=== PATIENT | male | born 2000 | race Caucasian/White ===

== ENCOUNTER 2019-10-21 15:25 | Emergency (ER) | payer SELFPAY ==
[2019-10-21 15:26] VITALS: BP 126/89; PULSE 93; RESP 18; TEMP 36.8; O2SAT 98; BMI 34.0
--- NOTE | 2019-10-21 15:40 | ED_ITS ---
HPI - General Adult General: Chief complaint: General Medical Stated complaint: gonzales, sore throat, n/v/d, cough Time Seen by Provider: 10/21/19 15:33 History of Present Illness: HPI narrative: 19-year-old male patient presents to the emergency department with onset of cough congestion, sore throat and headache for the past week. He reports has not seen his primary care provider. He reports unknown if he has experienced fever. Reports chills. He reports no vomiting for the past 5 days, able to eat and drink but experiences pain with swallowing. Associated symptoms: Reports dyspnea, headache(s) and nausea; Deny chest pain, diaphoresis, rash, palpitations or vomiting Review of Systems General: Reports: 10 or more systems reviewed and unremarkable except in HPI and below Const: Reports: chills; Denies: fever(s) or diaphoresis Eyes: Denies: blurry vision or eye redness ENMT: Reports: throat pain; Denies: dental pain or disequilibrium Card: Denies: chest pain, palpitations or irregular heart rhythm Resp: Reports: dyspnea, productive cough (Purulent), chest congestion and other (Wheezing); Denies: non-productive cough or wheezing GI: Reports: nausea; Denies: abdominal pain or vomiting : Denies: dysuria Musc: Denies: back pain Skin/Breast: Denies: rash or pruritus Neuro: Reports: headache(s); Denies: weakness in extremities or behavioral changes Curtis/Lymph: Denies: easy bruising Physical Exam Const: COMMON NORMALS: no acute distress, patient oriented x3, healthy appearing and alert GENERAL APPEARANCE: cooperative, comfortable and well hydrated HENMT: COMMON NORMALS: normocephalic, external ears normal, Normal external nose present and moist oral mucous membranes HEAD & SCALP: normocephalic FACE & SINUS: sinus tenderness maxillary (Bilateral) NOSE: Normal external nose present EXTERNAL EAR: Yes external ears normal TYMPANIC MEMBRANE: TM abnormal TM laterality: bilateral erythematous and with fluid behind the TM THROAT: uvula midline, posterior oropharynx abnormal cobblestoning and erythema and postnasal drainage Eye: COMMON NORMALS: Equal, round and reactive pupils present and EOMs intact bilaterally GENERAL EYE: appearance normal, both eyes and all related structures PUPIL: Yes Equal, round and reactive pupils present Neck/C-Spine: COMMON NORMALS: full ROM and no lymphadenopathy GENERAL: Yes normal visual inspection and Yes trachea midline CERVICAL SPINE: Yes cervical ROM normal Lymph: LYMPHATIC: no lymphadenopathy noted Chest: COMMONS NORMALS: normal inspection of the chest Resp: COMMON NORMALS: normal respiratory effort and clear to auscultation bilaterally AUSCULTATION: clear to auscultation bilaterally Cardio: COMMON NORMALS: regular rhythm, S1 normal heart sound present and S2 normal heart sound present RHYTHM: regular rhythm HEART SOUNDS: S1 normal heart sound present and S2 normal heart sound present GI: COMMON NORMALS: Soft to palpation and non-tender INSPECTION: Yes normal to inspection PALPATION: Yes Soft to palpation : COMMON NORMALS: Yes no CVA tenderness BLADDER/KIDNEY EXAM: Yes no CVA tenderness Back/Pelvis: COMMON NORMALS: no CVA tenderness and thoracic and lumbar spine normal to inspection Extremity: COMMON NORMALS: normal to inspection and capillary refill normal Neuro: COMMON NORMALS: patient oriented x3 and no focal motor deficits SENSORIUM/ORIENTATION: Yes alert Psych: COMMON NORMALS: mental status grossly normal, Normal thought process present and cooperative ACTIVITY/MOTOR BEHAVIOR: Yes appropriate eye contact THOUGHT PROCESS: Normal thought process present Skin: COMMON NORMALS: no rashes or lesions noted and turgor normal GENERAL SKIN EXAM: no rashes or lesions noted and turgor normal Course Vital Signs: Vital signs: Vital Signs Temperature 98.2 F 10/21/19 15:26 Pulse Rate 93 10/21/19 15:26 Respiratory Rate 18 10/21/19 15:26 Blood Pressure 126/89 10/21/19 15:26 Pulse Oximetry 98 10/21/19 15:26 Coding Level of Care Code ED Body Press Operator for Asad Paul
[2019-10-21 15:54] VITALS: BP 126/89; PULSE 86; RESP 18; O2SAT 97
== END 2019-10-21 15:56 | disposition home or self-care (01) ==
PROVIDERS: Emergency Provider Nurse Practitioner Family
DX: R51 Headache (principal); R05 Cough; J02.9 Acute pharyngitis, unspecified
CPT/HCPCS: 12345; 99281

== ENCOUNTER 2019-12-18 12:43 | Emergency (ER) | payer SELFPAY ==
[2019-12-18 12:48] VITALS: BP 142/81; PULSE 69; RESP 18; TEMP 36.6; O2SAT 98; BMI 34.0
--- NOTE | 2019-12-18 12:56 | XRR_ITS ---
PROCEDURE INFORMATION: Exam: XR Right Knee Exam date and time: 12/18/2019 12:57 PM Age: 19 years old Clinical indication: Pain and injury or trauma; Fall; Initial encounter; Blunt trauma; Injury date: 3 weeks ago; Injury details: HX of fracture of right knee; Additional info: RT knee pain - injury TECHNIQUE: Imaging protocol: XR Right knee. Views: 3 views. COMPARISON: No relevant prior studies available. FINDINGS: Bones/joints: Negative for acute bony abnormality Soft tissues: Normal. XR/XR knee RT 3V* [id number] IMPRESSION: No acute findings.
--- NOTE | 2019-12-18 13:19 | ED_ITS ---
HPI - Extremity Problem General: Chief complaint: Extremity Injury, Lower Stated complaint: Pain in Right Knee Time Seen by Provider: 12/18/19 12:52 History of Present Illness: HPI Narrative: 19-year-old male patient presents to the emergency department with complaints of right knee pain. He reports approximately 3 weeks ago, he sustained a fall, did go to a local emergency department, [place] where he was told x-ray was negative for fracture. He states pain continues. Worse with ambulation -states swelling is now present. States right knee feels weak at times. MD Complaint: joint swelling and joint pain (Right knee) Onset (ago): week(s) (3) Pain Consistency: intermittent Location: right and knee Severity scale (1-10): 5 Quality: aching and dull Radiation: none Relieving factors: immobilization and rest Exacerbating factors: range of motion and weight bearing Associated symptoms: Reports no associated symptoms; Deny chest pain, fever(s) or rash Review of Systems General: Reports: 10 or more systems reviewed and unremarkable except in HPI and below Const: Denies: fever(s), chills or diaphoresis Eyes: Denies: blurry vision or eye redness ENMT: Denies: throat pain, dental pain or disequilibrium Card: Denies: chest pain, palpitations or irregular heart rhythm Resp: Denies: dyspnea, productive cough, non-productive cough or wheezing GI: Denies: abdominal pain, nausea or vomiting : Denies: dysuria Musc: Reports: joint pain (Right knee) and joint swelling (Right knee); Denies: neck pain or back pain Skin/Breast: Denies: rash or pruritus Neuro: Denies: headache(s), weakness in extremities or behavioral changes Curtis/Lymph: Denies: easy bruising Physical Exam Const: COMMON NORMALS: no acute distress, patient oriented x3, healthy appearing and alert GENERAL APPEARANCE: cooperative, comfortable and well hydrated HENMT: COMMON NORMALS: normocephalic, Normal external nose present and moist oral mucous membranes HEAD & SCALP: normocephalic NOSE: Normal external nose present Eye: COMMON NORMALS: Equal, round and reactive pupils present and EOMs intact bilaterally GENERAL EYE: appearance normal, both eyes and all related structures PUPIL: Yes Equal, round and reactive pupils present Neck/C-Spine: COMMON NORMALS: full ROM and no lymphadenopathy GENERAL: Yes normal visual inspection and Yes trachea midline CERVICAL SPINE: Yes cervical ROM normal Lymph: LYMPHATIC: no lymphadenopathy noted Chest: COMMONS NORMALS: normal inspection of the chest Resp: COMMON NORMALS: normal respiratory effort and clear to auscultation bilaterally AUSCULTATION: clear to auscultation bilaterally Cardio: COMMON NORMALS: regular rhythm, S1 normal heart sound present, S2 normal heart sound present and Peripheral pulses 2+ throughout RHYTHM: regular rhythm HEART SOUNDS: S1 normal heart sound present and S2 normal heart sound present PERIPHERAL PULSES: Peripheral pulses 2+ throughout GI: COMMON NORMALS: Soft to palpation and non-tender INSPECTION: Yes normal to inspection PALPATION: Yes Soft to palpation : COMMON NORMALS: Yes no CVA tenderness BLADDER/KIDNEY EXAM: Yes no CVA tenderness Back/Pelvis: COMMON NORMALS: no CVA tenderness and thoracic and lumbar spine normal to inspection Extremity: COMMON NORMALS: normal to inspection, full ROM and capillary refill normal GENERAL: Yes normal exam except as noted RIGHT LOWER EXTREMITY: Yes knee joint Right knee: Yes inspection (Edema anteriorly superior of patella suggestive of effusion), Yes palpation (Pain with anterior and lateral palpation), Yes ROM (Limping gait noted, able to stand on right knee. Flexion extension noted with mild tenderness), Yes neurovascular exam (Distally intact) and Yes special tests Right knee special tests: Anterior Enoch test: Positive and Posterior Enoch test: Positive Neuro: COMMON NORMALS: patient oriented x3 and no focal motor deficits SENSORIUM/ORIENTATION: Yes alert Psych: COMMON NORMALS: mental status grossly normal, Normal thought process present and cooperative ACTIVITY/MOTOR BEHAVIOR: Yes appropriate eye contact THOUGHT PROCESS: Normal thought process present Skin: COMMON NORMALS: no rashes or lesions noted and turgor normal GENERAL SKIN EXAM: no rashes or lesions noted and turgor normal Course ED course: 19-year-old male presents to the emergency department with complaints of right knee pain. Previous emergency room evaluation at local facility with negative right knee findings on x-ray according to the patient. X-ray findings today were negative for fracture. He reports has knee immobilizer and crutches at home, he was encouraged to use them. Discussed with patient plan to have MRI of the right knee as OP - plan to have f/u with orthopedic surgery. Questions were answered and he verbalized understanding of plan. Vital Signs: Vital signs: Vital Signs Temperature 97.8 F 12/18/19 12:48 Pulse Rate 69 12/18/19 12:48 Respiratory Rate 18 12/18/19 12:48 Blood Pressure 142/81 12/18/19 12:48 Pulse Oximetry 98 12/18/19 12:48 MDM - Extremity (Nontraumatic) Imaging Data^: Other Xray: Radiologist's impression: [address] [address] XRay Report Signed Patient: Manny Brown Unit #: [id number] : 2000 Age/Sex: 19 / M ADM Date: 12/18/19 Loc: ER Room/Bed: Attending Dr: Ordering Provider/Ordering MD: Cynthia Hunt Date of Service: 12/18/19 Procedure(s): XR knee RT 3V* [id number] Accession Number(s): [id number] Report Number: [id number] PROCEDURE INFORMATION: Exam: XR Right Knee Exam date and time: 12/18/2019 12:57 PM Age: 19 years old Clinical indication: Pain and injury or trauma; Fall; Initial encounter; Blunt trauma; Injury date: 3 weeks ago; Injury details: HX of fracture of right knee; Additional info: RT knee pain - injury TECHNIQUE: Imaging protocol: XR Right knee. Views: 3 views. COMPARISON: No relevant prior studies available. FINDINGS: Bones/joints: Negative for acute bony abnormality Soft tissues: Normal. XR/XR knee RT 3V* [id number] IMPRESSION: No acute findings. Dictated By: Óscar Zuñiga Signed By: Óscar Zuñiga Signed Date/Time: 12/18/19 1326 DD/ 1325 Discharge Plan Discharge Patient Disposition: Home Clinical Impression: Knee joint pain Qualifiers: Laterality: right Qualified Code(s): M25.561 - Pain in right knee Internal derangement of knee Qualifiers: Laterality: left Qualified Code(s): M23.92 - Unspecified internal derangement of left knee Condition: Stable Prescriptions: New IBU 800 mg tablet 800 mg PO TID PRN (Reason: pain) Qty: 30 RF: 0 No Action Ventolin HFA 90 mcg/actuation HFA aerosol inhaler 2 inh INHALATION Q4H PRN (Reason: shortness of breath or wheezing) Qty: 8.5 RF: 0 Discharge Orders: Discharge Order (Routine); Ordered 12/18/19 Ordered By: Cynthia Hunt Discharge Diet: Usual diet Discharge Activity: Limit activity as instructed Patient Instructions: Knee Effusion (ED), Knee Pain (ED) Activity Restrictions/Additional Instructions: Use crutches and right knee immobilizer as directed, this will help with pain and help with swelling. Cool compresses to the right knee when able, avoid ice directly to the skin Keep the right knee elevated as much as possible to help with swelling An MRI of the right knee has been ordered, appointment will be made with follow- up with orthopedic surgery If you develop worsening signs and symptoms of pain, or inability to feel your right leg, return to the emergency room immediately. May use Tylenol as needed for breakthrough pain Do not utilize any further pain medication as dual therapy may occur. Stand Alone Forms: Work/School Release Discharge Date/Time: 12/18/19 14:23 Coding Level of Care Code ED Acquisition Consultant for Asad Fwjoel Exam Comprehensive
--- NOTE | 2019-12-18 15:24 | DCPLANNER ---
occupational therapy manager was asked to schedule an outpatient MRI for patient and make a referral to ortho. occupational therapy manager faxed order for MRI of knee to centralized scheduling, will call for appointment. After MRI, vocational case manager will schedule a follow up appointment for patient with ortho.
--- NOTE | 2019-12-20 11:06 | DCPLANNER ---
Patient has an MRI scheduled, onsite case manager called the ortho clinic, spoke with Kat, made referral to the clinic for after the scheduled MRI. Clinic will call patient with appointment information.
--- NOTE | 2019-12-21 11:55 | DCPLANNER ---
Patient has a follow up appointment scheduled for Wednesday, January 01, [address] at 9:[address] Arizmendi. Clinic will contact patient with appointment information.
--- NOTE | 2020-01-11 08:00 | DCPLANNER ---
Patient had an MRI scheduled for 12.28.19 - patient attended Patient had follow up with ortho on 01.01.20 - patient attended
== END 2019-12-18 14:23 | disposition home or self-care (01) ==
PROVIDERS: Emergency Provider Nurse Practitioner Family
DX: M23.91 Unspecified internal derangement of right knee (principal)
CPT/HCPCS: 12345; 73562; 99281; 99282

== ENCOUNTER 2019-12-28 09:34 | Outpatient (CLI) | payer SELFPAY ==
--- NOTE | 2019-12-28 09:52 | MR_ITS ---
WS: [id number] MRI RIGHT KNEE HISTORY: INTERNAL DERANGEMENT RIGHT KNEE COMPARISON: 12/17/2022 knee radiograph. Anterior cruciate ligament: Very small amount of increased T2 signal in the ACL but no tear. Posterior cruciate ligament: Intact. Medial collateral ligament: Small amount of fluid medial to the MCL. No tear. Posterior lateral corner structures: Intact. Medial menisci: Intact. Normal signal, size and shape. Lateral meniscus: Intact. Normal signal, size and shape. Extensor mechanism: Distal quadriceps tendon and patellar tendons are intact. Fluid and soft tissue: Small suprapatellar joint effusion. There is also soft tissue edema over the a nterior knee. Small amount of edema in the infrapatellar fat pad. No Howard's cyst. Small amount of fl uid along the popliteus tendon. Osseous and articular structures: Patellofemoral compartment: Normal. Medial compartment: Very mild irregularity of the cartilage surface. No full-thickness defects. There is a small amount of marrow edema in the lateral femoral condyle Lateral compartment: Normal. MR/MR knee RT wo con* [id number] IMPRESSION: 1. Small amount of acute marrow edema medial femoral condyle. 2. Mild proximal MCL sprain. No tear. 3. Small joint effusion and soft tissue edema.
== END 2019-12-28 09:35 | disposition home or self-care (01) ==
LOC: RADWPI 09:38
PROVIDERS: PCP Nurse Practitioner Family; Visit Provider Nurse Practitioner Family
DX: M23.91 Unspecified internal derangement of right knee (principal); M25.461 Effusion, right knee; R60.0 Localized edema; S83.411A Sprain of medial collateral ligament of right knee, initial encounter; X58.XXXA Exposure to other specified factors, initial encounter
CPT/HCPCS: 73721

== ENCOUNTER 2021-11-16 02:54 | Emergency (ER) | payer SELFPAY ==
[2021-11-16 03:09] VITALS: BP 133/76; PULSE 90; RESP 16; TEMP 36.8; O2SAT 98; BMI 35.6
--- NOTE | 2021-11-16 03:17 | XRR_ITS ---
PROCEDURE INFORMATION: Exam: XR Left Elbow Exam date and time: 11/16/2021 3:44 AM Age: 21 years old Clinical indication: Pain; Elbow; Left; Prior surgery; Additional info: L elbow pain TECHNIQUE: Imaging protocol: Radiologic exam of the Left elbow. Views: 3 or more views. COMPARISON: No relevant prior studies available. FINDINGS: Bones/joints: Normal. Soft tissues: Normal. Other findings: Postoperative changes over the distal humerus and proximal olecranon. XR/XR elbow LT min 3V* [id number] IMPRESSION: No acute findings.
[2021-11-16 05:29] VITALS: RESP 17
[2021-11-16] MEDS: oxyCODONE-APAP 5-325 mg Tablet 1 TAB PO (05:29)
--- NOTE | 2021-11-16 23:33 | W.ED.EXTPRO ---
HPI - Extremity Problem General: Chief complaint: Extremity Injury, Upper Stated complaint: Left Arm Pain Time Seen by Provider: 11/16/21 04:14 Source: patient History of Present Illness: 21-year-old male who fractured his left elbow over a year ago. He has hardware present in the elbow. He states that he has limited range of motion, which she deals with. He was in pain for a while after his surgery, but this seemed to slowly improved. However, for the last month, he is experienced increased pain and swelling with the elbow, and increasing limitations in range of motion. This is not improved with [id number] NSAIDs alone. He denies any fever. He denies significant new numbness and tingling, although he notes that his fifth finger is numb since surgery. MD Complaint: extremity pain and extremity swelling Location: left and upper extremity Associated symptoms: Deny fever(s) or rash Review of Systems Const: Denies: fever(s), chills or body aches Eyes: Denies: change in vision ENMT: Denies: throat pain Resp: Denies: dyspnea, productive cough, non-productive cough or wheezing GI: Denies: diarrhea or hematochezia Skin/Breast: Denies: rash Neuro: Denies: headache(s) or confusion PFSH ED PFSH: Social History Smoking and tobacco status: never smoked Alcohol intake: never Physical Exam Const: COMMON NORMALS: no acute distress GENERAL APPEARANCE: cooperative; not ill appearing and not frail appearing HENMT: COMMON NORMALS: normocephalic, atraumatic and Normal external nose present HEAD & SCALP: normocephalic and atraumatic FACE & SINUS: normal facial exam and face symmetric NOSE: Normal external nose present Eye: COMMON NORMALS: Equal, round and reactive pupils present and EOMs intact bilaterally PUPIL: Yes Equal, round and reactive pupils present Neck/C-Spine: GENERAL: Yes trachea midline Chest: CHEST: Yes Symmetrical chest wall rise Resp: COMMON NORMALS: normal respiratory effort, No retractions and No use of accessory muscles Cardio: COMMON NORMALS: regular rate and regular rhythm RATE: regular rate RHYTHM: regular rhythm Extremity: NARRATIVE EXTREMITY EXAM: Examination of the left upper extremity reveals tenderness over the left elbow. Range of motion is limited both in flexion and extension as well as supination and pronation the elbow is not overly warm. It is mildly swollen. There is no deformity. No redness or streaking. Neuro: JIM COMA SCALE: document GCS findings Jim coma scale eye opening: Spontaneous Jim coma scale verbal response: Orientated Jim coma scale motor response: Obey commands Jim coma scale total score: 15 SENSORY EXAM: Yes extremities (intact) Psych: COMMON NORMALS: speech normal SPEECH: Yes normal speech Skin: COMMON NORMALS: no rashes or lesions noted GENERAL SKIN EXAM: no rashes or lesions noted Course Vital Signs: Vital signs: Vital Signs Temperature 98.3 F 11/16/21 03:09 Pulse Rate 90 11/16/21 03:09 Respiratory Rate 17 11/16/21 05:29 Blood Pressure 133/76 11/16/21 03:09 Pulse Oximetry 98 11/16/21 03:09 Oxygen Delivery Me thod 11/16/21 03:09 MDM - Extremity (Nontraumatic) Medical Decision Making X-ray shows no acute findings of the elbow. He is afebrile. The elbow is not overly warm. He will be prescribed anti-inflammatory medication, and asked to follow-up. Case management has been asked to make the patient appointment with orthopedics. Lab Data Radiology Impressions Elbow X-Ray 11/16/21 03:17 IMPRESSION: No acute findings. Discharge Plan Discharge Patient Disposition: Home Clinical Impression: Elbow pain, left Condition: Stable Prescriptions: New ketorolac 10 mg tablet 10 mg PO TID PRN (Reason: pain) Qty: 10 0RF No Action IBU 800 mg tablet 800 mg PO TID PRN (Reason: pain) Qty: 30 0RF Ventolin HFA 90 mcg/actuation HFA aerosol inhaler 2 inh INHALATION Q4H PRN (Reason: shortness of breath or wheezing) Qty: 8.5 0RF Discharge Orders: Discharge ED (Routine); Ordered 11/16/21 Ordered By: Lai Rodriguez Patient Instructions: Arthralgia (ED), Opioid Safety Activity Restrictions/Additional Instructions: Case management order has been placed for you to follow-up with orthopedics here. Medication as directed. Ice will help with pain as well. Coding Level of Care Code ED Retail Wireless Sales Representative for Asad Paul
--- NOTE | 2021-11-17 15:37 | DCPLANNER ---
Addendum entered by Ann-Marie Mendoza 11/27/21 08:23: assurance senior manager insurance received the following message from the ortho clinic regarding follow up appointment: Left vm/mailed letter for him to call back and schedule with Dr. Arizmendi Original Note: assurance senior manager insurance had message to schedule a follow up appointment for patient with ortho. assurance senior manager insurance sent patients information to the front office staff at ortho. Patients information will be printed and reviewed. Clinic will call patient with appointment information.
== END 2021-11-16 06:04 | disposition home or self-care (01) ==
PROVIDERS: Emergency Provider Emergency Medicine
DX: M25.522 Pain in left elbow (principal)
CPT/HCPCS: 73080; 99283

== ENCOUNTER 2021-12-16 19:51 | Emergency (ER) | payer SELFPAY ==
--- NOTE | 2021-12-16 19:52 | ECG_ITS ---
[facility] Test Date: 2021-12-16 Pat Name: Manny Brown Department: Room: Gender: Male Director Of Archives: : 2000 Requested By: Mac oN Order Number: [id number] Piper MD: Silvina Conrad M.D. Measurements Intervals [place] Rate: 85 P: 73 NC: 179 QRS: 68 QRSD: 85 T: 67 QT: 330 QTc: 394 Interpretive Statements SINUS RHYTHM No previous ECG available for comparison Electronically Signed On 12-17-2021 6:01:28 CDT by Silvina Conrad M.D. [email or web address]
--- NOTE | 2021-12-16 19:52 | XRR_ITS ---
PROCEDURE INFORMATION: Exam: XR Chest Exam date and time: 12/16/2021 8:03 PM Age: 21 years old Clinical indication: Chest wall pain; Additional info: Cp TECHNIQUE: Imaging protocol: Radiologic exam of the chest. Views: 1 view. COMPARISON: No relevant prior studies available. FINDINGS: Lungs: Unremarkable. No consolidation. Pleural spaces: Unremarkable. No pleural effusion. No pneumothorax. Heart/Mediastinum: Unremarkable. No cardiomegaly. Bones/joints: Unremarkable. XR/XR chest 1V portable [id number] IMPRESSION: No acute findings.
[2021-12-16 19:54] VITALS: BP 171/100; PULSE 91; RESP 12; TEMP 36.9; O2SAT 97; BMI 29.5
--- NOTE | 2021-12-16 19:55 | W.ED.CHESTPA ---
HPI - Chest Pain General: Chief Complaint: Chest Pain Stated Complaint: CHEST PAIN Time Seen by Provider: 12/16/21 19:52 Source: patient and EMS Mode of arrival: EMS Limitations: no limitations History of Present Illness: 21-year-old male who is here from skilled nursing with chest pain he states he been having chest pain immediately throughout the day along with some dizziness he is felt nauseated as well. Pain currently 2 out of 10 denies any worsening proving factors denies any abdominal pain has had some slight dizziness as well. Associated symptoms: Deny abdominal pain, dyspnea, fever(s), nausea or vomiting Review of Systems Const: Denies: fever(s), chills, body aches or change in appetite Eyes: Denies: blurry vision or eye discomfort ENMT: Denies: throat pain or dental pain Card: Reports: chest pain Resp: Denies: dyspnea GI: Denies: abdominal pain, nausea, vomiting or diarrhea : Denies: dysuria Musc: Denies: neck pain or back pain Skin/Breast: Denies: rash Neuro: Denies: headache(s) Psych: Denies: depression Curtis/Lymph: Denies: easy bruising All/Imm: Denies: urticaria PFSH ED PFSH: Medical History (Updated 12/16/21 @ 20:55 by Mac No MD) No pertinent past medical history Social History Smoking and tobacco status: never smoked Alcohol intake: never Physical Exam Const: COMMON NORMALS: no acute distress, patient oriented x3 and healthy appearing HENMT: COMMON NORMALS: normocephalic and atraumatic HEAD & SCALP: normocephalic and atraumatic Eye: COMMON NORMALS: Equal, round and reactive pupils present and EOMs intact bilaterally PUPIL: Yes Equal, round and reactive pupils present Neck/C-Spine: COMMON NORMALS: full ROM and supple Chest: COMMONS NORMALS: normal inspection of the chest and normal palpation of entire chest wall Resp: COMMON NORMALS: normal respiratory effort, No retractions, No use of accessory muscles and clear to auscultation bilaterally AUSCULTATION: clear to auscultation bilaterally Cardio: COMMON NORMALS: regular rate, regular rhythm and No murmurs present (Cardio) RATE: regular rate RHYTHM: regular rhythm GI: COMMON NORMALS: Normal to inspection, nondistended, normoactive bowel sounds present, Soft to palpation, non-tender and no masses PALPATION: Yes Soft to palpation Extremity: COMMON NORMALS: normal to inspection and full ROM Neuro: COMMON NORMALS: patient oriented x3, moves all extremities and no focal motor deficits Psych: COMMON NORMALS: mental status grossly normal, Normal thought process present and cooperative THOUGHT PROCESS: Normal thought process present Skin: COMMON NORMALS: no rashes or lesions noted and no wounds GENERAL SKIN EXAM: no rashes or lesions noted Course Vital Signs: Vital signs: Vital Signs Temperature 98.4 F 12/16/21 19:54 Pulse Rate 85 12/16/21 20:28 Respiratory Rate 22 H 12/16/21 20:28 Blood Pressure 163/85 12/16/21 20:28 Pulse Oximetry 97 12/16/21 20:28 Oxygen Delivery Me thod 12/16/21 19:58 MDM - Chest Pain Medical Decision Making Patient presents here with chest pains atypical in nature his heart enzyme here is normal he is hypertensive he states he been hypertensive in the past we will start him on metoprolol he has no signs of acute coronary syndrome he is to return if worsening. Lab Data : 12/16/21 20:00 12/16/21 20:00 Radiology Impressions Chest X-Ray 12/16/21 19:52 IMPRESSION: No acute findings. Laboratory Results WBC 11.3 10^3/uL (4.0-10.0) H 12/16/21 20:00 RBC 4.79 10^6/uL (4.1-5.3) 12/16/21 20:00 Hgb 14.6 g/dL (11.7-16.6) 12/16/21 20:00 Hct 43.2 % (42.0-52.0) 12/16/21 20:00 MCV 90.2 fl (80-94) 12/16/21 20:00 MCH 30.5 pg (28.0-34.0) 12/16/21 20:00 MCHC 33.8 g/dL (30.0-36.0) 12/16/21 20:00 RDW 12.6 % (12.1-15.1) 12/16/21 20:00 Plt Count 300 10^3/cmm (130-400) 12/16/21 20:00 MPV 10.2 fL (7.4-10.4) 12/16/21 20:00 Neut % (Auto) 76.6 % 12/16/21 20:00 Lymph % (Auto) 16.4 % 12/16/21 20:00 [place] % (Auto) 5.6 % 12/16/21 20:00 Eos % (Auto) 0.4 % 12/16/21 20:00 Baso % (Auto) 0.4 % 12/16/21 20:00 Neut # (Auto) 8.63 10^3/uL (1.8-7.7) H 12/16/21 20:00 Lymph # (Auto) 1.8 10^3/uL (0.8-4.8) 12/16/21 20:00 [place] # (Auto) 0.6 10^3/uL (0.2-0.9) 12/16/21 20:00 Eos # (Auto) 0.0 10^3/uL (0.0-0.8) 12/16/21 20:00 Baso # (Auto) 0.0 10^3/uL (0.0-0.1) 12/16/21 20:00 Nucleated RBC % (auto) 0 % 12/16/21 20:00 Nucleated RBCs # 0.0 /100WBC 12/16/21 20:00 Sodium 139 mmol/L (136-145) 12/16/21 20:00 Potassium 4.1 mmol/L (3.5-5.1) 12/16/21 20:00 Chloride 103 mmol/L (98-107) 12/16/21 20:00 Carbon Dioxide 27 mmol/L (22-29) 12/16/21 20:00 Anion Gap 13.1 (5-19) 12/16/21 20:00 BUN 12 mg/dL (6-20) 12/16/21 20:00 Creatinine 0.8 mg/dL (0.7-1.2) 12/16/21 20:00 GFR Calculation 120.9 mL/min (90-130) 12/16/21 20:00 Glucose 124 mg/dL (65-115) H 12/16/21 20:00 Calculated Osmolality 289 mOsm/kg (285-295) 12/16/21 20:00 Calcium 9.7 mg/dL (8.5-10.5) 12/16/21 20:00 Total Bilirubin 0.3 mg/dL (0.15-1.2) 12/16/21 20:00 AST 27 U/L (0-40) 12/16/21 20:00 ALT 68 U/L (0-41) H 12/16/21 20:00 Alkaline Phosphatase 106 U/L (40-130) 12/16/21 20:00 Troponin T Baseline 10 ng/L (0-15) 12/16/21 20:00 Total Protein 7.1 g/dL (6.6-8.7) 12/16/21 20:00 Albumin 4.4 g/dL (3.5-5.2) 12/16/21 20:00 Globulin 2.7 g/dL (1.3-4.6) 12/16/21 20:00 SARS-CoV-2 Ag (Rapid) Negative (Negative) 12/16/21 20:00 EKG Data EKG 1: I personally reviewed and interpreted this EKG as follows: EKG interpretation date: 12/16/21 EKG interpretation time: 20:03 Interpretation: nsr hr [address] or t wave abnormalities qrs 85 qtc 372 Discharge Plan Discharge Patient Disposition: Home Clinical Impression: Hypertension Chest pain Qualifiers: Chest pain type: unspecified Qualified Code(s): R07.9 - Chest pain, unspecified Condition: Stable Prescriptions: New metoprolol succinate 25 mg tablet extended release 24 hr 25 mg PO DAILY Qty: 30 0RF No Action IBU 800 mg tablet 800 mg PO TID PRN (Reason: pain) Qty: 30 0RF Ventolin HFA 90 mcg/actuation HFA aerosol inhaler 2 inh INHALATION Q4H PRN (Reason: shortness of breath or wheezing) Qty: 8.5 0RF ketorolac 10 mg tablet 10 mg PO TID PRN (Reason: pain) Qty: 10 0RF Discharge Orders: Discharge ED (Routine); Ordered 12/16/21 Ordered By: Mac No Discharge Diet: Advance as tolerated Discharge Activity: Resume usual activity Coding Level of Care Code ED Film Splicer for Chg Fwd Exam Comprehensive
[2021-12-16 19:58] VITALS: PULSE 91; RESP 16; O2SAT 97
[2021-12-16 20:15] LABS: Basophils % 0.4 %; Eosinophils % 0.4 %; Hematocrit 43.2 % (42.0-52.0); Hemoglobin 14.6 g/dL (11.7-16.6); Lymphocytes # 1.8 10^3/uL (0.8-4.8); Lymphocytes % 16.4 %; Mean Corpuscular HGB Conc 33.8 g/dL (30.0-36.0); Mean Corpuscular Hemoglobin 30.5 pg (28.0-34.0); Mean Corpuscular Volume 90.2 fl (80-94); Mean Platelet Volume 10.2 fL (7.4-10.4); Monocytes # 0.6 10^3/uL (0.2-0.9); Monocytes % 5.6 %; Neutrophils # 8.63 10^3/uL (1.8-7.7); Neutrophils % 76.6 %; Nucleated Red Blood Cells % 0 %; Platelet Count 300 10^3/cmm (130-400); Red Blood Count 4.79 10^6/uL (4.1-5.3); Red Cell Distribution Width 12.6 % (12.1-15.1); White Blood Count 11.3 10^3/uL (4.0-10.0)
[2021-12-16 20:28] VITALS: BP 163/85; PULSE 85; RESP 22; O2SAT 97
[2021-12-16] MEDS: labetalol 5 mg/mL SDV 20mL 10 MG IVP (20:28)
[2021-12-16 20:30] VITALS: BP 160/80; PULSE 84; RESP 12; O2SAT 98
[2021-12-16 20:42] LABS: Troponin(5th) Baseline 10 ng/L (0-15)
[2021-12-16 20:46] LABS: Alanine Aminotransferase 68 U/L (0-41); Albumin Level 4.4 g/dL (3.5-5.2); Alkaline Phosphatase 106 U/L (40-130); Anion Gap 13.1 (5-19); Aspartate Amino Transferase 27 U/L (0-40); Blood Urea Nitrogen 12 mg/dL (6-20); Calcium 9.7 mg/dL (8.5-10.5); Carbon Dioxide 27 mmol/L (22-29); Chloride 103 mmol/L (98-107); Globulin 2.7 g/dL (1.3-4.6); Glomerular Filtration Rate 120.9 mL/min (90-130); Glucose 124 mg/dL (65-115); Osmolality Calculated 289 mOsm/kg (285-295); Potassium 4.1 mmol/L (3.5-5.1); Sodium 139 mmol/L (136-145); Total Bilirubin 0.3 mg/dL (0.15-1.2); Total Protein 7.1 g/dL (6.6-8.7)
[2021-12-16 20:57] LABS: SARS Covid-2 Antigen Negative (Negative)
[2021-12-16 21:00] VITALS: BP 152/80; PULSE 90; RESP 18; O2SAT 97
[2021-12-16 21:11] VITALS: BP 152/80; PULSE 76; RESP 16; O2SAT 99
== END 2021-12-16 21:28 | disposition home or self-care (01) ==
PROVIDERS: Emergency Provider Emergency Medicine
DX: R07.9 Chest pain, unspecified (principal); I10 Essential (primary) hypertension; Z20.822 Contact with and (suspected) exposure to COVID-19
CPT/HCPCS: 71045; 80053; 84484; 85025; 87426; 93005; 96374; 99285; J3490

== ENCOUNTER 2022-11-21 05:40 | Emergency (ER) | payer SELFPAY ==
[2022-11-21 05:42] VITALS: BP 153/92; PULSE 97; RESP 18; TEMP 36.9; O2SAT 98; BMI 34.0
--- NOTE | 2022-11-21 05:43 | ED_ITS ---
HPI - Dental/Oral General: Stated complaint: dental pain Time Seen by Provider: 11/21/22 05:41 Source: patient Mode of arrival: ambulatory History of Present Illness: 2-year-old male presents emergency room complaining of pain #17 2 weeks. He is not impacted wisdom tooth posterior left mandible. There is slight drainage there is mild swelling of the gum. He denies any fever has been trying to get into a dentist but they are booking out so far he has been unsuccessful MD Complaint: tooth pain Teeth map: 1. Onset (ago): day(s) Severity: moderate Relieving factors: nothing Exacerbating factors: chewing and cold Associated symptoms: Reports gum swelling; Denies ear or mastoid pain, fever(s), odynophagia, sore throat or tongue swelling Treatment prior to arrival: none Review of Systems Const: Denies: fever(s) or chills ENMT: Reports: dental pain; Denies: odynophagia or ear or mastoid pain Card: Denies: chest pain Resp: Denies: dyspnea, productive cough or non-productive cough GI: Denies: abdominal pain Skin/Breast: Denies: rash or pruritus All/Imm: Denies: tongue swelling PFSH ED PFSH: Medical History No pertinent past medical history Social History Smoking and tobacco status: never smoked Alcohol intake: never Substance/Drug Use: never Physical Exam Const: GENERAL APPEARANCE: cooperative ORIENTATION/CONSCIOUSNESS: Yes awake, Yes oriented to person, Yes oriented to place and Yes oriented to time HENMT: COMMON NORMALS: normocephalic, atraumatic and hearing grossly normal bilaterally HEAD & SCALP: normocephalic and atraumatic OTHER: Mildly inflamed and swollen of the gallbladder out over 17 tooth appears to be slightly impacted wisdom tooth. No palpable abscess not cervical or submandibular lymphadenopathy or swelling Neuro: SENSORIUM/ORIENTATION: Yes oriented to person, Yes oriented to place and Yes oriented to time MDM - Dental/Oral Medical Decision Making Dental infection start oral Augmentin tramadol or [id number] NSAIDs for pain advised patient to see dentist as soon as he is able for definitive care Medical Records I reviewed the patient's medical records. Lab Data I reviewed the patient's lab results. Discharge Plan Discharge Patient Disposition: Home Clinical Impression: Dental infection Condition: Stable Prescriptions: New amoxicillin-pot clavulanate 875-125 mg tablet 1 tab PO BID Qty: 20 0RF tramadol 50 mg tablet 50 mg PO Q6H PRN (Reason: pain) Qty: 10 0RF Discontinued ibuprofen [IBU] 800 mg tablet 800 mg PO TID PRN (Reason: pain) Qty: 30 0RF ketorolac 10 mg tablet 10 mg PO TID PRN (Reason: pain) Qty: 10 0RF No Action Ventolin HFA 90 mcg/actuation HFA aerosol inhaler 2 inh INHALATION Q4H PRN (Reason: shortness of breath or wheezing) Qty: 8.5 0RF metoprolol succinate 25 mg tablet extended release 24 hr 25 mg PO DAILY Qty: 30 0RF Discharge Orders: Discharge ED (Routine); Ordered 11/21/22 Ordered By: Chemo Davies Discharge Diet: Soft Mechanical Discharge Activity: Increase activity as tolerated Patient Instructions: Opioid Safety, Pain Management Activity Restrictions/Additional Instructions: Follow-up with the dentist as soon as you are able for definitive care Coding Level of Care Code ED Percolator Operator for Asad Paul
== END 2022-11-21 05:59 | disposition home or self-care (01) ==
PROVIDERS: Emergency Provider Family Medicine
DX: K04.7 Periapical abscess without sinus (principal)
CPT/HCPCS: 99283

== ENCOUNTER 2023-01-26 01:35 | Emergency (ER) | payer SELFPAY ==
[2023-01-26 01:42] VITALS: BP 153/92; PULSE 113; RESP 17; TEMP 37; O2SAT 93; BMI 36.1
[2023-01-26 02:14] LABS: Basophils % 0.5 %; Eosinophils # 0.1 10^3/uL (0.0-0.8); Eosinophils % 0.7 %; Hematocrit 41.9 % (37-53); Lymphocytes # 2.6 10^3/uL (0.8-4.8); Lymphocytes % 29.9 %; Mean Corpuscular HGB Conc 33.9 g/dL (30-55); Mean Corpuscular Hemoglobin 30.7 pg (27-33); Mean Corpuscular Volume 90.7 fl (82-101); Mean Platelet Volume 10.6 fL (7.4-10.4); Monocytes # 0.9 10^3/uL (0.2-0.9); Monocytes % 9.9 %; Neutrophils # 5.08 10^3/uL (1.8-7.7); Neutrophils % 58.8 %; Nucleated Red Blood Cells % 0 %; Platelet Count 217 10^3/cmm (157-399); Red Blood Count 4.62 10^6/uL (3.85-5.65); Red Cell Distribution Width 12.5 % (12.1-15.1); White Blood Count 8.65 10^3/uL (3.29-11.43)
--- NOTE | 2023-01-26 02:15 | W.ED.MALEGU ---
Documented by User: Howard Alberts DO 01/26/23 05:09 HPI - Male Genitourinary General: Chief complaint: Urogenital-Male Stated complaint: peeing blood Time Seen by Provider: 01/26/23 02:09 History of Present Illness: patient presents to the ER and states he has been pain and blood intermittently. Patient says been passing clots with some reddish tinge in his urine. Patient also states he got a sore in the tip of his penis. Patient also states he has been having some back pain worse on the right. Patient does state it hurts to pee and it salazar. Patient says he is faithful to his and does not sleep around. Never had an STD. Patient is thinks his is faithful to him but if he has anything is definitely caught it from her. Review of Systems General: Reports: 10 or more systems reviewed and unremarkable except in HPI and below PFSH ED PFSH: Medical History No pertinent past medical history Social History Smoking and tobacco/nicotine status: never used tobacco/nicotine Alcohol intake: never Substance/Drug Use: never Physical Exam Const: COMMON NORMALS: no acute distress, average body habitus, patient oriented x3, no limitations, healthy appearing, alert and well nourished HENMT: COMMON NORMALS: normocephalic, atraumatic, hearing grossly normal bilaterally, external ears normal, Normal external nose present, moist oral mucous membranes and oropharynx normal HEAD & SCALP: normocephalic and atraumatic NOSE: Normal external nose present EXTERNAL EAR: Yes external ears normal Neck/C-Spine: COMMON NORMALS: no JVD Chest: COMMONS NORMALS: normal inspection of the chest and normal palpation of entire chest wall Resp: COMMON NORMALS: normal respiratory effort, No retractions, No use of accessory muscles and clear to auscultation bilaterally AUSCULTATION: clear to auscultation bilaterally Cardio: COMMON NORMALS: no JVD, regular rate ( Tachycardic), regular rhythm, S1 normal heart sound present, No clicks present (Cardio), No murmurs present (Cardio) and No rub (Cardio) RATE: regular rate ( Tachycardic) RHYTHM: regular rhythm HEART SOUNDS: S1 normal heart sound present GI: COMMON NORMALS: Normal to inspection, nondistended, normoactive bowel sounds present, Soft to palpation, non-tender, No hepatosplenomegaly present and no masses PALPATION: Yes Soft to palpation and Yes No hepatosplenomegaly present : COMMON NORMALS: Yes no CVA tenderness and No normal external exam ( small red irritated sore on ventral tip of penis, nonulcer) BLADDER/KIDNEY EXAM: Yes no CVA tenderness Back/Pelvis: COMMON NORMALS: no CVA tenderness Neuro: COMMON NORMALS: patient oriented x3 SENSORIUM/ORIENTATION: Yes alert Course Vital Signs: Vital signs: Vital Signs Temperature 98.6 F 01/26/23 01:42 Pulse Rate 99 01/26/23 04:00 Respiratory Rate 17 01/26/23 01:42 Blood Pressure 138/87 01/26/23 04:00 Pulse Oximetry 96 01/26/23 04:00 Oxygen Delivery Me thod Room Air 01/26/23 02:45 MDM - Male Differential Diagnosis Unlikely urinary tract infection, priapism, urethritis, epididymitis, genital herpes simplex, prostatitis, acute retention of urine or inguinal hernia Medical Records I reviewed the patient's medical records. Lab Data I reviewed the patient's lab results. 01/26/23 02:09 01/26/23 02:09 Radiology Impressions Abdomen/Pelvis CT 01/26/23 03:04 IMPRESSION: 1. 1 mm nonobstructing left renal calculus. 2. Additional findings as described above. Laboratory Results WBC 8.65 10^3/uL (3.29-11.43) 01/26/23 02:09 RBC 4.62 10^6/uL (3.85-5.65) 01/26/23 02:09 Hgb 14.20 g/dL (11.27-16.99) 01/26/23 02:09 Hct 41.9 % (37-53) 01/26/23 02:09 MCV 90.7 fl (82-101) 01/26/23 02:09 MCH 30.7 pg (27-33) 01/26/23 02:09 MCHC 33.9 g/dL (30-55) 01/26/23 02:09 RDW 12.5 % (12.1-15.1) 01/26/23 02:09 Plt Count 217 10^3/cmm (157-399) 01/26/23 02:09 MPV 10.6 fL (7.4-10.4) H 01/26/23 02:09 Neut % (Auto) 58.8 % 01/26/23 02:09 Lymph % (Auto) 29.9 % 01/26/23 02:09 [place] % (Auto) 9.9 % 01/26/23 02:09 Eos % (Auto) 0.7 % 01/26/23 02:09 Baso % (Auto) 0.5 % 01/26/23 02:09 Neut # (Auto) 5.08 10^3/uL (1.8-7.7) 01/26/23 02:09 Lymph # (Auto) 2.6 10^3/uL (0.8-4.8) 01/26/23 02:09 [place] # (Auto) 0.9 10^3/uL (0.2-0.9) 01/26/23 02:09 Eos # (Auto) 0.1 10^3/uL (0.0-0.8) 01/26/23 02:09 Baso # (Auto) 0.0 10^3/uL (0.0-0.1) 01/26/23 02:09 Nucleated RBC % (auto) 0 % 01/26/23 02:09 Nucleated RBCs # 0.0 /100WBC 01/26/23 02:09 Sodium 139 mmol/L (136-145) 01/26/23 02:09 Potassium 3.7 mmol/L (3.5-5.1) 01/26/23 02:09 Chloride 104 mmol/L (98-107) 01/26/23 02:09 Carbon Dioxide 22 mmol/L (22-29) 01/26/23 02:09 Anion Gap 16.7 (5-19) 01/26/23 02:09 BUN 17 mg/dL (6-20) 01/26/23 02:09 Creatinine 1.1 mg/dL (0.7-1.2) 01/26/23 02:09 GFR Calculation 83.0 mL/min (90-130) L 01/26/23 02:09 Glucose 109 mg/dL (65-115) 01/26/23 02:09 Calculated Osmolality 290 mOsm/kg (285-295) 01/26/23 02:09 Calcium 9.0 mg/dL (8.5-10.5) 01/26/23 02:09 Total Bilirubin 0.3 mg/dL (0.15-1.2) 01/26/23 02:09 AST 24 U/L (0-40) 01/26/23 02:09 ALT 71 U/L (0-41) H 01/26/23 02:09 Alkaline Phosphatase 111 U/L (40-130) 01/26/23 02:09 Total Protein 7.2 g/dL (6.6-8.7) 01/26/23 02:09 Albumin 4.4 g/dL (3.5-5.2) 01/26/23 02:09 Globulin 2.8 g/dL (1.3-4.6) 01/26/23 02:09 Urine Color Yellow (Yellow) 01/26/23 02:40 Urine Appearance Sl hazy (CLEAR) A 01/26/23 02:40 Urine pH 5 (5-7) 01/26/23 02:40 Ur Specific [place] 1.020 (1.005-1.030) 01/26/23 02:40 Urine Protein Neg (Negative) 01/26/23 02:40 Urine Glucose (UA) Norm (Normal) 01/26/23 02:40 Urine Ketones Negative (Negative) 01/26/23 02:40 Urine Blood 3+ (Negative) H 01/26/23 02:40 Urine Nitrate Negative (Negative) 01/26/23 02:40 Urine Bilirubin Neg (Negative) 01/26/23 02:40 Urine Urobilinogen Neg mg/dL (Negative) 01/26/23 02:40 Ur Leukocyte Esterase 1+ (Negative) H 01/26/23 02:40 Urine RBC 10-15 /hpf (0-2) H 01/26/23 02:40 Urine WBC 15-25 /hpf (0-5) H 01/26/23 02:40 Ur Squamous Epith Cells 0-4 /hpf (0-5) H 01/26/23 02:40 Ur Transition Epith Cell 0-4 /hpf 01/26/23 02:40 Amorphous Sediment Not Reportable 01/26/23 02:40 Urine Bacteria Trace /hpf (NONE) 01/26/23 02:40 Urine Mucus 1+ /hpf 01/26/23 02:40 Discharge Plan Discharge Patient Disposition: Home Clinical Impression: Urinary tract infection, Urethritis Condition: Stable Prescriptions: New doxycycline hyclate 100 mg capsule 100 mg PO BID 10 Days Qty: 28 0RF No Action Ventolin HFA 90 mcg/actuation HFA aerosol inhaler 2 inh INHALATION Q4H PRN (Reason: shortness of breath or wheezing) Qty: 8.5 0RF metoprolol succinate 25 mg tablet extended release 24 hr 25 mg PO DAILY Qty: 30 0RF amoxicillin-pot clavulanate 875-125 mg tablet 1 tab PO BID Qty: 20 0RF tramadol 50 mg tablet 50 mg PO Q6H PRN (Reason: pain) Qty: 10 0RF Discharge Orders: Discharge ED (Routine); Ordered 01/26/23 Ordered By: Chemo Davies Referrals: Zenon Fry DO [Primary Care Provider] - Discharge Diet: Usual diet Discharge Activity: Resume usual activity Patient Instructions: Opioid Safety, Pain Management Activity Restrictions/Additional Instructions: Thank you for choosing [facility] for your healthcare needs today. Please realize this is an emergency room and that we are providing you with a medical screening exam and this may not be complete and all inclusive of all the testing and or work up that you may need to determine your ailment or severity of your illness. It is very important that you follow up as instructed or that you return to the Emergency Department should you have concerns or if your condition changes or worsens in any way. You were given empiric antibiotics until your urine culture results. The CT showed a stone in the kidney but it is not obstructing or causing any complications at this time. Stand Alone Forms: Work/School Release Coding Level of Care Code ED Metal Punch Press Operator for Chg Fwd Documented by User: Chemo Davies DO 01/26/23 06:01 HPI - Male Genitourinary General: Chief complaint: Urogenital-Male Stated complaint: peeing blood Time Seen by Provider: 01/26/23 02:09 [facility] ED PFSH: Medical History No pertinent past medical history Social History Smoking and tobacco/nicotine status: never used tobacco/nicotine Alcohol intake: never Substance/Drug Use: never Course Vital Signs: Vital signs: Vital Signs Temperature 98.6 F 01/26/23 01:42 Pulse Rate 99 01/26/23 04:00 Respiratory Rate 17 01/26/23 01:42 Blood Pressure 138/87 01/26/23 04:00 Pulse Oximetry 96 01/26/23 04:00 Oxygen Delivery Me thod Room Air 01/26/23 02:45 MDM - Male Medical Decision Making Care assumed from Dr. Alberts at change of shift reviewed notes and discussed case with Dr. Alberts. Empirically treated patient with IM Rocephin direct observe therapy 1 g of Zithromax 14 days of doxycycline 100 twice daily urine and cultures pending discussed with patient. Lab Data 01/26/23 02:09 01/26/23 02:09 Radiology Impressions Abdomen/Pelvis CT 01/26/23 03:04 IMPRESSION: 1. 1 mm nonobstructing left renal calculus. 2. Additional findings as described above. Laboratory Results WBC 8.65 10^3/uL (3.29-11.43) 01/26/23 02:09 RBC 4.62 10^6/uL (3.85-5.65) 01/26/23 02:09 Hgb 14.20 g/dL (11.27-16.99) 01/26/23 02:09 Hct 41.9 % (37-53) 01/26/23 02:09 MCV 90.7 fl (82-101) 01/26/23 02:09 MCH 30.7 pg (27-33) 01/26/23 02:09 MCHC 33.9 g/dL (30-55) 01/26/23 02:09 RDW 12.5 % (12.1-15.1) 01/26/23 02:09 Plt Count 217 10^3/cmm (157-399) 01/26/23 02:09 MPV 10.6 fL (7.4-10.4) H 01/26/23 02:09 Neut % (Auto) 58.8 % 01/26/23 02:09 Lymph % (Auto) 29.9 % 01/26/23 02:09 [place] % (Auto) 9.9 % 01/26/23 02:09 Eos % (Auto) 0.7 % 01/26/23 02:09 Baso % (Auto) 0.5 % 01/26/23 02:09 Neut # (Auto) 5.08 10^3/uL (1.8-7.7) 01/26/23 02:09 Lymph # (Auto) 2.6 10^3/uL (0.8-4.8) 01/26/23 02:09 [place] # (Auto) 0.9 10^3/uL (0.2-0.9) 01/26/23 02:09 Eos # (Auto) 0.1 10^3/uL (0.0-0.8) 01/26/23 02:09 Baso # (Auto) 0.0 10^3/uL (0.0-0.1) 01/26/23 02:09 Nucleated RBC % (auto) 0 % 01/26/23 02:09 Nucleated RBCs # 0.0 /100WBC 01/26/23 02:09 Sodium 139 mmol/L (136-145) 01/26/23 02:09 Potassium 3.7 mmol/L (3.5-5.1) 01/26/23 02:09 Chloride 104 mmol/L (98-107) 01/26/23 02:09 Carbon Dioxide 22 mmol/L (22-29) 01/26/23 02:09 Anion Gap 16.7 (5-19) 01/26/23 02:09 BUN 17 mg/dL (6-20) 01/26/23 02:09 Creatinine 1.1 mg/dL (0.7-1.2) 01/26/23 02:09 GFR Calculation 83.0 mL/min (90-130) L 01/26/23 02:09 Glucose 109 mg/dL (65-115) 01/26/23 02:09 Calculated Osmolality 290 mOsm/kg (285-295) 01/26/23 02:09 Calcium 9.0 mg/dL (8.5-10.5) 01/26/23 02:09 Total Bilirubin 0.3 mg/dL (0.15-1.2) 01/26/23 02:09 AST 24 U/L (0-40) 01/26/23 02:09 ALT 71 U/L (0-41) H 01/26/23 02:09 Alkaline Phosphatase 111 U/L (40-130) 01/26/23 02:09 Total Protein 7.2 g/dL (6.6-8.7) 01/26/23 02:09 Albumin 4.4 g/dL (3.5-5.2) 01/26/23 02:09 Globulin 2.8 g/dL (1.3-4.6) 01/26/23 02:09 Urine Color Yellow (Yellow) 01/26/23 02:40 Urine Appearance Sl hazy (CLEAR) A 01/26/23 02:40 Urine pH 5 (5-7) 01/26/23 02:40 Ur Specific [place] 1.020 (1.005-1.030) 01/26/23 02:40 Urine Protein Neg (Negative) 01/26/23 02:40 Urine Glucose (UA) Norm (Normal) 01/26/23 02:40 Urine Ketones Negative (Negative) 01/26/23 02:40 Urine Blood 3+ (Negative) H 01/26/23 02:40 Urine Nitrate Negative (Negative) 01/26/23 02:40 Urine Bilirubin Neg (Negative) 01/26/23 02:40 Urine Urobilinogen Neg mg/dL (Negative) 01/26/23 02:40 Ur Leukocyte Esterase 1+ (Negative) H 01/26/23 02:40 Urine RBC 10-15 /hpf (0-2) H 01/26/23 02:40 Urine WBC 15-25 /hpf (0-5) H 01/26/23 02:40 Ur Squamous Epith Cells 0-4 /hpf (0-5) H 01/26/23 02:40 Ur Transition Epith Cell 0-4 /hpf 01/26/23 02:40 Amorphous Sediment Not Reportable 01/26/23 02:40 Urine Bacteria Trace /hpf (NONE) 01/26/23 02:40 Urine Mucus 1+ /hpf 01/26/23 02:40 All radiology interpretation(s) finalized by discharge Discharge Plan Discharge Patient Disposition: Home Clinical Impression: Urinary tract infection, Urethritis Condition: Stable Prescriptions: New doxycycline hyclate 100 mg capsule 100 mg PO BID 10 Days Qty: 28 0RF No Action Ventolin HFA 90 mcg/actuation HFA aerosol inhaler 2 inh INHALATION Q4H PRN (Reason: shortness of breath or wheezing) Qty: 8.5 0RF metoprolol succinate 25 mg tablet extended release 24 hr 25 mg PO DAILY Qty: 30 0RF amoxicillin-pot clavulanate 875-125 mg tablet 1 tab PO BID Qty: 20 0RF tramadol 50 mg tablet 50 mg PO Q6H PRN (Reason: pain) Qty: 10 0RF Discharge Orders: Discharge ED (Routine); Ordered 01/26/23 Ordered By: Chemo Davies Referrals: Zenon Fry DO [Primary Care Provider] - Discharge Diet: Usual diet Discharge Activity: Resume usual activity Patient Instructions: Opioid Safety, Pain Management Activity Restrictions/Additional Instructions: Thank you for choosing [facility] for your healthcare needs today. Please realize this is an emergency room and that we are providing you with a medical screening exam and this may not be complete and all inclusive of all the testing and or work up that you may need to determine your ailment or severity of your illness. It is very important that you follow up as instructed or that you return to the Emergency Department should you have concerns or if your condition changes or worsens in any way. You were given empiric antibiotics until your urine culture results. The CT showed a stone in the kidney but it is not obstructing or causing any complications at this time. Stand Alone Forms: Work/School Release Coding Level of Care Code ED Metal Punch Press Operator for Asad Paul
[2023-01-26 02:37] LABS: Alanine Aminotransferase 71 U/L (0-41); Albumin Level 4.4 g/dL (3.5-5.2); Alkaline Phosphatase 111 U/L (40-130); Anion Gap 16.7 (5-19); Aspartate Amino Transferase 24 U/L (0-40); Blood Urea Nitrogen 17 mg/dL (6-20); Carbon Dioxide 22 mmol/L (22-29); Chloride 104 mmol/L (98-107); Globulin 2.8 g/dL (1.3-4.6); Glucose 109 mg/dL (65-115); Osmolality Calculated 290 mOsm/kg (285-295); Potassium 3.7 mmol/L (3.5-5.1); Sodium 139 mmol/L (136-145); Total Bilirubin 0.3 mg/dL (0.15-1.2); Total Protein 7.2 g/dL (6.6-8.7)
[2023-01-26 02:45] VITALS: BP 160/99; PULSE 104; O2SAT 97
[2023-01-26 03:02] LABS: Add Urine Microscopic? YES; Bilirubin Urine Neg (Negative); Blood Urine 3+ (Negative); Glucose Urine UA Norm (Normal); Ketones Urine Negative (Negative); Leukocyte Esterase Urine 1+ (Negative); Nitrate Urine Negative (Negative); Protein Urine Neg (Negative); Urine Appearance SL Hazy (CLEAR); Urine Color Yellow (Yellow); Urobilinogen Urine Neg (Negative); pH Urine 5 (5-7)
--- NOTE | 2023-01-26 03:04 | CTR_ITS ---
PROCEDURE INFORMATION: Exam: CT Abdomen And Pelvis Without Contrast Exam date and time: 01/26/2023 3:14 AM Age: 22 years old Clinical indication: Abdominal pain; Flank; Right; Additional info: Flank pain hematuria TECHNIQUE: Imaging protocol: Computed tomography of the abdomen and pelvis without contrast. Radiation optimization: All CT scans at this facility use at least one of these dose optimization techniques: automated exposure control; mA and/or kV adjustment per patient size (includes targeted exams where dose is matched to clinical indication); or iterative reconstruction. REPORTING DATA: Count of CT and Cardiac NM exams in prior 12 months: This patient has received 0 known CTs and 0 known cardiac nuclear medicine studies in the 12 months prior to the current study. COMPARISON: None RADIATION DOSE METRICS: Total DLP (mGy-cm): 1198.91 FINDINGS: Detailed evaluation of the abdominal and pelvic viscera is somewhat limited in the absence of intravenous contrast. Lungs: No acute airspace or pleural disease. Liver: Fatty infiltration of the liver. Gallbladder and bile ducts: Unremarkable gallbladder. Pancreas: No pancreatic mass or ductal dilatation. Spleen: Enlarged spleen measuring 12.8 cm in length. Adrenal glands: Unremarkable adrenals. Kidneys and ureters: 1 mm nonobstructing left renal calculus. Stomach and bowel: Questionable wall thickening in the decompressed stomach. Prominent stool. Diverticula, without pericolonic inflammation. Appendix: No acute appendicitis. Intraperitoneal space: No significant intraperitoneal fluid. Vasculature: Normal caliber of the abdominal aorta. Lymph nodes: The subcentimeter lymph nodes. Urinary bladder: Nondistended bladder with wall thickening. Reproductive: Unremarkable as visualized. Bones/joints: Schmorl's nodes and vertebral endplate irregularity. Soft tissues: Unremarkable. CT/CT abdomen pelvis con [id number] IMPRESSION: 1. 1 mm nonobstructing left renal calculus. 2. Additional findings as described above.
[2023-01-26 03:05] LABS: Add Urine Culture? Yes; Bacteria Urine TRACE /hpf; Mucus Urine 1+ /hpf; Squamous Epithelial Cell Urine 0-4 /hpf (0-5); Transitional Epi Cells Urine 0-4 /hpf; WBC Urine 15-25 /hpf (0-5)
[2023-01-26 04:00] VITALS: BP 138/87; PULSE 99; O2SAT 96
[2023-01-26] MEDS: cefTRIAXone 500 MG in water for injection-sterile 1 ML IM (06:06)
[2023-01-26] MEDS: azithromycin 250 mg Tablet 1000 MG PO (06:07)
[2023-01-26 06:29] VITALS: O2SAT 98
[2023-01-27 15:54] LABS: Chlamydia Trachomatis RNA TMA DETECTED (NOT DETECTED); Neisseria Gonorrhoeae RNA, TMA NOT DETECTED (NOT DETECTED)
== END 2023-01-26 06:31 | disposition home or self-care (01) ==
PROVIDERS: Emergency Medicine; Emergency Provider Family Medicine; PCP Family Medicine
DX: N20.0 Calculus of kidney (principal); N39.0 Urinary tract infection, site not specified
CPT/HCPCS: 36415; 74176; 80053; 81001; 85025; 87086; 87491; 87591; 96372; 99284; J0696; Q0144

== ENCOUNTER 2024-06-07 02:23 | Emergency (ER) | payer SELFPAY ==
[2024-06-07 02:42] VITALS: BP 141/73; PULSE 88; RESP 16; TEMP 36.6; O2SAT 98; BMI 36.9
[2024-06-07 02:49] VITALS: BP 141/73; PULSE 78; RESP 16; O2SAT 98
[2024-06-07 03:03] LABS: Basophils % 0.4 %; Eosinophils # 0.1 10^3/uL (0.0-0.8); Lymphocytes # 3.3 10^3/uL (0.8-4.8); Lymphocytes % 35.9 %; Mean Corpuscular HGB Conc 33.5 g/dL (30-55); Mean Corpuscular Volume 89.5 fl (82-101); Mean Platelet Volume 10.6 fL (7.4-10.4); Monocytes # 0.6 10^3/uL (0.2-0.9); Monocytes % 6.6 %; Neutrophils # 5.07 10^3/uL (1.8-7.7); Neutrophils % 55.7 %; Nucleated Red Blood Cells % 0 %; Platelet Count 276 10^3/cmm (157-399); Red Blood Count 5.14 10^6/uL (3.85-5.65); Red Cell Distribution Width 12.9 % (12.1-15.1); White Blood Count 9.11 10^3/uL (3.29-11.43)
--- NOTE | 2024-06-07 03:06 | ED_ITS ---
HPI - Abdominal Pain 2 General: Chief Complaint: Abdominal Pain Stated Complaint: ABD Pain Time Seen by Provider: 06/07/24 02:55 History of Present Illness: 24-year-old man who presents emergency r oom with lower abdominal pain and diarrhea for couple days now. He says it anything he eats comes out his watery diarrhea immediately. No nausea or vomiting. Vitals are normal on presentation. No fevers. Related Data Previous Rx's ?Medication ?Instructions ?Recorded albuterol sulfate 90 mcg/actuation 2 inh inhalation Q4 H PRN shortness 10/21/19 aerosol inhaler (Ventolin HFA) of breath or wheezing # 8.5 grams metoprolol succinate 25 mg 25 mg PO DAILY #30 tabs tablet,extended release 24 hr amoxicillin 875 mg-potassium 1 tab PO BID #20 tabs 05/14 clavulanate 125 mg tablet tramadol 50 mg tablet 50 mg PO Q6H PRN pain #10 ta bs 11/21/22 Allergies Allergy/AdvReac Type Severity Reaction Status Date / Time No Known Allergies Allergy Verified 06/07/24 02:50 Review of Systems 2 Narrative: Constitutional symptoms: Negative except as documented in HPI. Skin symptoms: Negative except as documented in HPI. Eye symptoms: Negative except as documented in HPI. ENMT symptoms: Negative except as documented in HPI. Respiratory symptoms: Negative except as documented in HPI. Cardiovascular symptoms: Negative except as documented in HPI. Gastrointestinal symptoms: Negative except as documented in HPI. Genitourinary symptoms: Negative except as documented in HPI. Musculoskeletal symptoms: Negative except as documented in HPI. Neurologic symptoms: Negative except as documented in HPI. Psychiatric symptoms: Negative except as documented in HPI. Endocrine symptoms: Negative except as documented in HPI. PFSH ED 2 PFSH: Medical History No pertinent past medical history Social History Smoking and tobacco/nicotine status: never used tobacco/nicotine Alcohol intake: never Substance/Drug Use: never Physical Exam 2 Narrative: EXAM NARRATIVE: General: Alert, no acute distress. Skin: Warm, dry. Head: Normocephalic, atraumatic. Neck: Supple, trachea midline. Eye: Extraocular movements are intact. Ears, nose, mouth and throat: mucosa moist. Cardiovascular: Regular, Normal peripheral perfusion. Respiratory: Lungs are clear to auscultation, respirations are non-labored, breath sounds are equal, Symmetrical chest wall expansion. Gastrointestinal: Soft, Nontender, Non distended Musculoskeletal: Normal ROM, no deformity. Neurological: Alert and oriented, No focal neurological deficit observed. Psychiatric: Cooperative, appropriate mood & affect. Course 2 Vital Signs: Vital signs: Vital Signs Temperature 97.9 F 06/07/24 02:42 Pulse Rate 78 06/07/24 02:49 Respiratory Rate 16 06/07/24 02:49 Blood Pressure 141/73 06/07/24 02:49 Pulse Oximetry 98 06/07/24 02:49 Oxygen Delivery Me thod Room Air 06/07/24 02:42 MDM - Abdominal Pain Medical Decision Making Lab review: No leukocytosis. No anemia. No renal failure. Assessment and plan: Diarrhea Dehydration ? Zofran and IV fluids. - Discharged home - Discussed plan with patient. Answered any questions. - Evaluation and treatment of this problem were appropriate in the emergency setting. Lab Data 06/07/24 02:54 06/07/24 02:54 Labs/Radiology: Laboratory Results WBC 9.11 10^3/uL (3.29-11.43) 06/07/24 02:54 RBC 5.14 10^6/uL (3.85-5.65) 06/07/24 02:54 Hgb 15.40 g/dL (11.27-16.99) 06/07/24 02:54 Hct 46.0 % (37-53) 06/07/24 02:54 MCV 89.5 fl (82-101) 06/07/24 02:54 MCH 30.0 pg (27-33) 06/07/24 02:54 MCHC 33.5 g/dL (30-55) 06/07/24 02:54 RDW 12.9 % (12.1-15.1) 06/07/24 02:54 Plt Count 276 10^3/cmm (157-399) 06/07/24 02:54 MPV 10.6 fL (7.4-10.4) H 06/07/24 02:54 Neut % (Auto) 55.7 % 06/07/24 02:54 Lymph % (Auto) 35.9 % 06/07/24 02:54 [place] % (Auto) 6.6 % 06/07/24 02:54 Eos % (Auto) 1.0 % 06/07/24 02:54 Baso % (Auto) 0.4 % 06/07/24 02:54 Neut # (Auto) 5.07 10^3/uL (1.8-7.7) 06/07/24 02:54 Lymph # (Auto) 3.3 10^3/uL (0.8-4.8) 06/07/24 02:54 [place] # (Auto) 0.6 10^3/uL (0.2-0.9) 06/07/24 02:54 Eos # (Auto) 0.1 10^3/uL (0.0-0.8) 06/07/24 02:54 Baso # (Auto) 0.0 10^3/uL (0.0-0.1) 06/07/24 02:54 Nucleated RBC % (auto) 0 % 06/07/24 02:54 Nucleated RBCs # 0.0 /100WBC 06/07/24 02:54 Sodium 137 mmol/L (136-145) 06/07/24 02:54 Potassium 4.2 mmol/L (3.5-5.1) 06/07/24 02:54 Chloride 101 mmol/L (98-107) 06/07/24 02:54 Carbon Dioxide 23 mmol/L (22-29) 06/07/24 02:54 Anion Gap 17.2 (5-19) 06/07/24 02:54 BUN 14 mg/dL (6-20) 06/07/24 02:54 Creatinine 0.7 mg/dL (0.7-1.2) 06/07/24 02:54 GFR Calculation 137.4 mL/min (90-130) H 06/07/24 02:54 Glucose 113 mg/dL (65-115) 06/07/24 02:54 Calculated Osmolality 285 mOsm/kg (285-295) 06/07/24 02:54 Lactic Acid 2.0 mmol/L (0.5-2.2) 06/07/24 02:54 Calcium 9.2 mg/dL (8.5-10.5) 06/07/24 02:54 Total Bilirubin 0.3 mg/dL (0.15-1.2) 06/07/24 02:54 AST 23 U/L (0-40) 06/07/24 02:54 ALT 66 U/L (0-41) H 06/07/24 02:54 Alkaline Phosphatase 114 U/L (40-130) 06/07/24 02:54 Total Protein 7.6 g/dL (6.6-8.7) 06/07/24 02:54 Albumin 4.5 g/dL (3.5-5.2) 06/07/24 02:54 Globulin 3.1 g/dL (1.3-4.6) 06/07/24 02:54 Lipase 25 U/L (13-60) 06/07/24 02:54 No radiology studies performed this visit Discharge Plan Discharge Patient Disposition: Home Clinical Impression: Gastroenteritis, Diarrhea, Dehydration Condition: Stable Prescriptions: No Action Ventolin HFA 90 mcg/actuation HFA aerosol inhaler 2 inh INHALATION Q4H PRN (Reason: shortness of breath or wheezing) Qty: 8.5 0RF metoprolol succinate 25 mg tablet extended release 24 hr 25 mg PO DAILY Qty: 30 0RF amoxicillin-pot clavulanate 875-125 mg tablet 1 tab PO BID Qty: 20 0RF tramadol 50 mg tablet 50 mg PO Q6H PRN (Reason: pain) Qty: 10 0RF Discharge Orders: Discharge ED (Routine); Ordered 06/07/24 Ordered By: Yoana Rahman Referrals: Zenon Fry, [Primary Care Provider] - Discharge Diet: As Directed Discharge Activity: Increase activity as tolerated Patient Instructions: Acute Diarrhea (ED), Opioid Safety, Pain Management Activity Restrictions/Additional Instructions: Thank you for choosing [facility] for your healthcare needs today. Please realize this is an emergency room and that we are providing you with a medical screening exam and this may not be complete and all inclusive of all the testing and or work up that you may need to determine your ailment or severity of your illness. You have been screened and evaluated and felt safe for discharge. Health conditions do change or evolve sometimes and as such it is important that you follow up with your Primary Doctor to be re checked, 3-5 days is a general good time frame for follow up. You are always welcome to return to the ED for re assessment if your symptoms are worsening or you have new concerns Print Language: Armenian Coding Level of Care Code ED [employer] Protection [employer] Technician for Asad Paul
[2024-06-07 03:17] LABS: Alanine Aminotransferase 66 U/L (0-41); Albumin Level 4.5 g/dL (3.5-5.2); Alkaline Phosphatase 114 U/L (40-130); Anion Gap 17.2 (5-19); Aspartate Amino Transferase 23 U/L (0-40); Blood Urea Nitrogen 14 mg/dL (6-20); Calcium 9.2 mg/dL (8.5-10.5); Carbon Dioxide 23 mmol/L (22-29); Chloride 101 mmol/L (98-107); Creatinine Clr Calc Pharmacy 200.2898; Globulin 3.1 g/dL (1.3-4.6); Glomerular Filtration Rate 137.4 mL/min (90-130); Glucose 113 mg/dL (65-115); Lipase 25 U/L (13-60); Osmolality Calculated 285 mOsm/kg (285-295); Potassium 4.2 mmol/L (3.5-5.1); Sodium 137 mmol/L (136-145); Total Bilirubin 0.3 mg/dL (0.15-1.2); Total Protein 7.6 g/dL (6.6-8.7)
[2024-06-07] MEDS: ondansetron 2 mg/ML SDV 2 mL 4 MG IVP (03:44)
[2024-06-07] MEDS: sodium chloride 0.9% 500 ML 999 ML IV (03:44)
[2024-06-07 04:18] VITALS: BP 135/71; PULSE 65; O2SAT 96
== END 2024-06-07 04:19 | disposition home or self-care (01) ==
PROVIDERS: Emergency Provider Emergency Medicine; PCP Family Medicine
DX: K52.9 Noninfective gastroenteritis and colitis, unspecified (principal); E86.0 Dehydration
CPT/HCPCS: 36415; 80053; 83605; 83690; 85025; 96361; 96374; 99284; J2405; J7040